=== PATIENT | female | born 1980 ===

== ENCOUNTER 2018-03-26 06:12 | Inpatient (IN) ==
[2018-03-26] MEDS ORDERED: BUTORPHANOL 2 MG/ML VIAL IV PRN (06:29)
[2018-03-26] MEDS ORDERED: MEPERIDINE 50 MG/1 ML VIAL IM PRN (06:29)
[2018-03-26] MEDS ORDERED: ONDANSETRON 4 MG/2 ML VIAL IV PRN ×2 (06:29→19:16)
[2018-03-26] MEDS ORDERED: OXYTOCIN/LR 20 UNIT/1,000 ML BAG IV SCH (06:30)
[2018-03-26] MEDS ORDERED: LACTATED RINGERS 1,000 ML IV SCH (06:30)
[2018-03-26 07:14] LABS: Basophils % 0.2 % (0.0-0.8); Eosinophils # 0.1 10*3/uL (0.0-0.87); Eosinophils % 1.2 % (0.00-10.9); Hematocrit 31.6 VOL% (35.7-47.0); Hemoglobin 9.7 GM/DL (12.0-16.0); Immature Granulocytes % 0.6 %; Immature Granulocytes Absolute 0.03 #; Lymphocytes # 1.6 10*3/uL (1.4-4.0); Lymphocytes % 31.4 % (21.3-54.2); Mean Corpuscular HGB Conc 30.7 GM/DL (32-36); Mean Corpuscular Hemoglobin 26 PG (27-34); Mean Corpuscular Volume 85.9 FL (87-102); Mean Platelet Volume 12.7 FL (9.6-12.0); Monocytes # 0.4 10*3/uL (0.11-0.8); Neutrophils % 59.6 % (38.7-73.9); Platelet Count 127 T/CUMM (130-400); Red Blood Count 3.68 MC/CUMM (3.8-5.5); Red Cell Distribution Width 13.9 % (9.3-17.3)
[2018-03-26 07:29] LABS: Alanine Aminotransferase 14 U/L (13-56); Alkaline Phosphatase 170 U/L (45-117); Aspartate Amino Transferase 17 U/L (0-37); Bilirubin,Total < 0.39 MG/DL (0.2-1.0); Blood Urea Nitrogen 7 MG/DL (7-18); Calcium 8.1 MG/DL (8.5-10.1); Glucose 80 MG/DL (74-106); Osmolality,Calculated 273.5 MOS/KG (273-304); Sodium 139 MMOL/L (136-145)
[2018-03-26] MEDS ORDERED: FAMOTIDINE 20 MG/2 ML VIAL IV ONE (07:44)
[2018-03-26] MEDS ORDERED: LACTATED RINGERS 1,000 ML IV ONE (07:44)
[2018-03-26] MEDS ORDERED: CITRIC ACID/SODIUM CITRATE 30 ML UDCUP PO ONE (07:44)
[2018-03-26] MEDS ORDERED: ePHEDrine 50 MG/ML AMP IV PRN (07:45)
[2018-03-26] MEDS ORDERED: diphenhydrAMINE 50 MG/1 ML VIAL IV PRN ×2 (07:45)
[2018-03-26] MEDS ORDERED: NALOXONE 0.4 MG/ML VIAL IV PRN (07:45)
[2018-03-26] MEDS ORDERED: hydrOXYzine HCL 25 MG/1 ML VIAL IM PRN (07:45)
[2018-03-26] MEDS ORDERED: PROMETHAZINE 25 MG/1 ML VIAL IM ONE (07:45)
[2018-03-26] MEDS ORDERED: INSULIN REGULAR 100 UNIT/ML SUBCUT PRN (07:53)
[2018-03-26] MEDS ORDERED: DEXTROSE 50% 25 GM/50 ML VIAL IV PRN ×3 (07:53→22:08)
[2018-03-26] MEDS ORDERED: GLUCAGON 1 MG VIAL IM PRN ×3 (07:53→22:08)
[2018-03-26] MEDS ORDERED: fentaNYL 2 MCG/ROPIV 0.2% EPID 100 ML EPIDURAL SCH (08:00)
[2018-03-26] MEDS: AMPICILLIN INJ 2,000 MG in SODIUM CHLORIDE 0.9% 100 ML IV SCH ×2 (08:08→12:48)
[2018-03-26 09:50] LABS: Hepatitis B Surface Ag Quant < 0.10 Index; Hepatitis B Surface Ag Result Negative (Negative)
[2018-03-26 10:55] LABS: HIV Antigen/Antibody Result Nonreactive (Nonreactive)
[2018-03-26] MEDS ORDERED: DEXTROSE 5% LACTATED RINGERS 1,000 ML IV SCH (15:00)
[2018-03-26] MEDS ORDERED: ceFAZolin 2,000 MG in PREMIX 1 EACH IV ONE (17:15)
[2018-03-26] MEDS ORDERED: LIDOCAINE MPF 2% /EPI 20 ML VIAL ONE (17:19)
[2018-03-26] MEDS ORDERED: OXYTOCIN 10 UNIT/ML VIAL ONE ×2 (17:33→18:38)
[2018-03-26] MEDS ORDERED: MORPHINE 10 MG/10 ML VIAL ONE (18:36)
[2018-03-26] MEDS ORDERED: MIDAZOLAM 2 MG/2 ML VIAL ONE (18:38)
[2018-03-26] MEDS ORDERED: RHO(D) IMMUNE GLOBULIN 300 MCG SYRINGE IM ONE (19:16)
[2018-03-26] MEDS ORDERED: ACETAMINOPHEN 325 MG TABLET PO PRN (19:16)
[2018-03-26] MEDS ORDERED: OXYTOCIN/LR 20 UNIT/1,000 ML BAG IV ONE (19:16)
[2018-03-26] MEDS: DOCUSATE SODIUM 100 MG CAPSULE PO SCH (22:35)
[2018-03-27] MEDS: LACTATED RINGERS 1,000 ML IV SCH ×3 (01:40→11:06)
[2018-03-27] MEDS: ceFAZolin 1,000 MG in SYRINGE 1 EACH IV SCH ×2 (01:41→09:37)
[2018-03-27] MEDS: INSULIN REGULAR 100 UNIT/ML SUBCUT SCH ×4 (04:07→21:13)
[2018-03-27] MEDS ORDERED: GLUCAGON 1 MG VIAL IM PRN ×2 (04:53→16:40)
[2018-03-27] MEDS ORDERED: DEXTROSE 50% 25 GM/50 ML VIAL IV PRN ×2 (04:53→16:40)
[2018-03-27 07:20] LABS: Basophils % 0.2 % (0.0-0.8); Eosinophils % 0.2 % (0.00-10.9); Hematocrit 28.8 VOL% (35.7-47.0); Immature Granulocytes % 0.4 %; Immature Granulocytes Absolute 0.05 #; Lymphocytes # 1.7 10*3/uL (1.4-4.0); Lymphocytes % 13.1 % (21.3-54.2); Mean Corpuscular HGB Conc 31.3 GM/DL (32-36); Mean Corpuscular Hemoglobin 27 PG (27-34); Mean Platelet Volume 12.5 FL (9.6-12.0); Monocytes # 0.6 10*3/uL (0.11-0.8); Monocytes % 4.5 % (1.7-12.7); Neutrophils # 10.6 10*3/uL (1.4-7.4); Neutrophils % 81.6 % (38.7-73.9); Platelet Count 136 T/CUMM (130-400); Red Blood Count 3.31 MC/CUMM (3.8-5.5); Red Cell Distribution Width 14.1 % (9.3-17.3)
[2018-03-27] MEDS: DOCUSATE SODIUM 100 MG CAPSULE PO SCH ×2 (09:36→21:12)
[2018-03-27] MEDS: MULTIVITAMIN (PRENATAL) TABLET PO SCH (09:36)
[2018-03-27] MEDS: SIMETHICONE CHEW 80 MG TABLET PO PRN (15:47)
[2018-03-27] MEDS: MAGNESIUM HYDROXIDE SUSP 30 ML UDCUP PO PRN (15:47)
[2018-03-27] MEDS: METOCLOPRAMIDE 10 MG TABLET PO PRN (21:13)
[2018-03-28] MEDS: IBUPROFEN 800 MG TABLET PO PRN ×2 (00:33→09:33)
[2018-03-28] MEDS: METOCLOPRAMIDE 10 MG TABLET PO PRN ×2 (09:30→15:02)
[2018-03-28] MEDS: MAGNESIUM HYDROXIDE SUSP 30 ML UDCUP PO PRN ×2 (09:33→21:16)
[2018-03-28] MEDS: SIMETHICONE CHEW 80 MG TABLET PO PRN (09:34)
[2018-03-28] MEDS: MULTIVITAMIN (PRENATAL) TABLET PO SCH (09:34)
[2018-03-28] MEDS: DOCUSATE SODIUM 100 MG CAPSULE PO SCH ×2 (09:37→21:16)
[2018-03-29] MEDS: INSULIN REGULAR 100 UNIT/ML SUBCUT SCH (02:24)
[2018-03-29 07:38] VITALS: BP 125/71
[2018-03-29] MEDS: SIMETHICONE CHEW 80 MG TABLET PO PRN (09:31)
[2018-03-29] MEDS: DOCUSATE SODIUM 100 MG CAPSULE PO SCH (09:31)
[2018-03-29] MEDS: IBUPROFEN 800 MG TABLET PO PRN (09:31)
[2018-03-29] MEDS: MAGNESIUM HYDROXIDE SUSP 30 ML UDCUP PO PRN (09:32)
[2018-03-29] MEDS: MULTIVITAMIN (PRENATAL) TABLET PO SCH (09:33)
[2018-03-29] MEDS ORDERED: DIPH/TET/ACEL PERT BOOSTER VACCINE 0.5 ML VIAL IM ONE (09:55)
[2018-03-29] MEDS ORDERED: INFLUENZA VIRUS VACCINE 0.5 ML SYRINGE IM ONE (09:55)
== END 2018-03-29 11:50 | disposition home or self-care (01) | DRG 786 ==
LOC: N.LDOUT 06:12 → N.LD 06:14 → N.OB 22:27
PROVIDERS: ADMIT Obstetrics & Gynecology; ATTEND Obstetrics & Gynecology
PROC: LDCSECT (ICD-10-PCS; 2018-03-26 17:30)

== ENCOUNTER 2022-04-20 01:31 | Inpatient (IN) ==
[2022-04-20] MEDS ORDERED: ceFAZolin 2,000 MG/50 ML DUPLEX IV PRN (05:47)
[2022-04-20] MEDS ORDERED: CITRIC ACID/SODIUM CITRATE 30 ML UDCUP PO PRN (05:47)
[2022-04-20] MEDS ORDERED: miSOPROStoL 200 MCG TABLET RECTAL PRN (05:47)
[2022-04-20] MEDS ORDERED: TRANEXAMIC ACID 1,000 MG in SODIUM CHLORIDE 0.9% 100 ML IV PRN (05:47)
[2022-04-20] MEDS ORDERED: METHYLERGONOVINE 0.2 MG/1 ML AMP IM PRN (05:47)
[2022-04-20] MEDS ORDERED: CARBOPROST TROMETHAMINE 250 MCG/ML AMP IM PRN (05:47)
[2022-04-20] MEDS ORDERED: FAMOTIDINE 20 MG/2 ML VIAL IV PRN (05:47)
[2022-04-20] MEDS ORDERED: OXYTOCIN/LR 30 UNIT/1,000 ML BAG IV PRN (05:50)
[2022-04-20] MEDS ORDERED: diphenhydrAMINE 50 MG/1 ML VIAL IV PRN ×2 (05:52)
[2022-04-20] MEDS ORDERED: hydrOXYzine HCL 25 MG/1 ML VIAL IM PRN (05:52)
[2022-04-20] MEDS ORDERED: PROMETHAZINE 25 MG/1 ML VIAL IM PRN ×2 (05:52→14:13)
[2022-04-20] MEDS ORDERED: LACTATED RINGERS 1,000 ML IV SCH ×2 (06:00→10:00)
[2022-04-20] MEDS: LACTATED RINGERS 1,000 ML IV PRN ×2 (06:14→08:13)
[2022-04-20 06:33] LABS: Basophils % 0.2 % (0.0-0.8); Eosinophils # 0.1 10*3/uL (0.0-0.87); Hematocrit 30.6 VOL% (35.7-47.0); Hemoglobin 9.9 GM/DL (12.0-16.0); Immature Granulocytes % 0.5 %; Immature Granulocytes Absolute 0.03 #; Lymphocytes # 1.5 10*3/uL (1.4-4.0); Mean Corpuscular HGB Conc 32.4 GM/DL (32-36); Mean Corpuscular Volume 87.4 FL (87-102); Mean Platelet Volume 11.3 FL (9.6-12.0); Monocytes # 0.5 10*3/uL (0.11-0.8); Monocytes % 7.8 % (1.7-12.7); Neutrophils % 64.5 % (38.7-73.9); Platelet Count 177 T/CUMM (130-400); Red Cell Distribution Width 13.4 % (9.3-17.3); White Blood Count 5.9 T/CUMM (4-12)
[2022-04-20 06:55] LABS: Alanine Aminotransferase 10 U/L (13-56); Albumin 2.1 G/DL (3.4-5.0); Alkaline Phosphatase 164 U/L (45-117); Aspartate Amino Transferase 8 U/L (0-37); Bilirubin,Total < 0.39 MG/DL (0.20-1.00); Blood Urea Nitrogen 8 MG/DL (7-18); Calcium 8.2 MG/DL (8.5-10.1); Carbon Dioxide 25 MMOL/L (21-32); Chloride 110 MMOL/L (98-107); Glucose 78 MG/DL (74-106); Osmolality,Calculated 277.3 MOS/KG (273-304); Potassium 3.7 MMOL/L (3.5-5.1); Sodium 141 MMOL/L (136-145); Total Protein 5.8 G/DL (6.4-8.2)
[2022-04-20] MEDS ORDERED: ONDANSETRON 4 MG/2 ML VIAL ONE ×2 (08:24→09:13)
[2022-04-20] MEDS ORDERED: buprenorphine HCL 0.3 MG/ML VIAL ONE (08:24)
[2022-04-20] MEDS ORDERED: BUPIVACAINE SPINAL 0.75% 2 ML AMP SPINAL ONE (08:24)
[2022-04-20] MEDS ORDERED: OXYTOCIN 10 UNIT/ML VIAL IM ONE (08:57)
[2022-04-20 09:35] LABS: Bilirubin,Urine Negative (Negative); Blood, Urine Negative (Negative); Glucose,Urine (UA) Negative (Negative); Ketones,Urine Negative (Negative); Mucus,Urine Occasional /LPF (Occasional); Nitrite,Urine Negative (Negative); Protein,Urine Negative (Negative); RBC,Urine <1 /HPF (0-4); Squamous Epithelial Cell,Urine Occasional /HPF (0-10); Urine Appearance CLEAR (Clear); Urine Color Yellow (Yellow); Urine Specific Gravity 1.019 (1.001-1.035)
[2022-04-20 09:38] LABS: Cord Arterial Blood HCO3 20.1 MMOL/L
[2022-04-20] MEDS ORDERED: KETOROLAC 30 MG/1 ML VIAL ONE (09:38)
[2022-04-20 09:41] LABS: Cord Venous Blood HCO3 22.1 MMOL/L; Cord Venous Blood PCO2 46.4 MMHG; Cord Venous Blood PO2 30.1
[2022-04-20] MEDS ORDERED: ACETAMINOPHEN 325 MG TABLET PO PRN (09:43)
[2022-04-20] MEDS ORDERED: OXYTOCIN/LR 20 UNIT/1,000 ML BAG IV ONE ×2 (09:43→11:40)
[2022-04-20] MEDS ORDERED: ONDANSETRON 4 MG/2 ML VIAL IV PRN (09:43)
[2022-04-20] MEDS ORDERED: RHO(D) IMMUNE GLOBULIN 300 MCG SYRINGE IM ONE (09:43)
[2022-04-20] MEDS ORDERED: GLUCAGON 1 MG VIAL IM PRN (09:43)
[2022-04-20] MEDS ORDERED: IBUPROFEN 800 MG TABLET PO PRN (09:43)
[2022-04-20] MEDS ORDERED: DEXTROSE 10% 250 ML BAG IV PRN (09:43)
[2022-04-20] MEDS ORDERED: HYDROmorphone 1 MG/1 ML SYRINGE IV PRN (09:47)
[2022-04-20] MEDS: ACETAMINOPHEN 500 MG TABLET PO SCH ×2 (13:14→18:01)
[2022-04-20 15:20] LABS: Basophils % 0.1 % (0.0-0.8); Eosinophils % 0.2 % (0.00-10.9); Hematocrit 33.4 VOL% (35.7-47.0); Hemoglobin 10.9 GM/DL (12.0-16.0); Immature Granulocytes % 0.3 %; Immature Granulocytes Absolute 0.03 #; Lymphocytes # 1.1 10*3/uL (1.4-4.0); Lymphocytes % 11.4 % (21.3-54.2); Mean Corpuscular HGB Conc 32.6 GM/DL (32-36); Mean Corpuscular Volume 88.1 FL (87-102); Mean Platelet Volume 11.3 FL (9.6-12.0); Monocytes # 0.5 10*3/uL (0.11-0.8); Monocytes % 5.2 % (1.7-12.7); Neutrophils % 82.8 % (38.7-73.9); Platelet Count 180 T/CUMM (130-400); Red Blood Count 3.79 MC/CUMM (3.8-5.5); Red Cell Distribution Width 13.2 % (9.3-17.3); White Blood Count 9.7 T/CUMM (4-12)
[2022-04-20] MEDS: KETOROLAC 30 MG/1 ML VIAL IV SCH ×2 (16:38→23:50)
[2022-04-20] MEDS: INSULIN REGULAR 100 UNIT/ML SUBCUT SCH ×2 (18:07→23:40)
[2022-04-20] MEDS: DOCUSATE SODIUM 100 MG CAPSULE PO SCH (20:58)
[2022-04-20] MEDS: SIMETHICONE CHEW 80 MG TABLET PO PRN (20:58)
[2022-04-21] MEDS: ACETAMINOPHEN 500 MG TABLET PO SCH ×2 (00:01→06:13)
[2022-04-21] MEDS: KETOROLAC 30 MG/1 ML VIAL IV SCH (00:01)
[2022-04-21] MEDS: INSULIN REGULAR 100 UNIT/ML SUBCUT SCH ×3 (06:05→17:20)
[2022-04-21] MEDS ORDERED: KETOROLAC 30 MG/1 ML VIAL IV SCH (06:30)
[2022-04-21 07:02] LABS: Basophils % 0.2 % (0.0-0.8); Eosinophils # 0.1 10*3/uL (0.0-0.87); Eosinophils % 1.4 % (0.00-10.9); Hematocrit 30.5 VOL% (35.7-47.0); Immature Granulocytes % 0.5 %; Immature Granulocytes Absolute 0.03 #; Lymphocytes # 1.5 10*3/uL (1.4-4.0); Lymphocytes % 23.6 % (21.3-54.2); Mean Corpuscular HGB Conc 32.8 GM/DL (32-36); Mean Corpuscular Volume 87.9 FL (87-102); Mean Platelet Volume 11.2 FL (9.6-12.0); Monocytes # 0.5 10*3/uL (0.11-0.8); Monocytes % 7.3 % (1.7-12.7); Platelet Count 195 T/CUMM (130-400); Red Blood Count 3.47 MC/CUMM (3.8-5.5); Red Cell Distribution Width 13.4 % (9.3-17.3); White Blood Count 6.5 T/CUMM (4-12)
[2022-04-21] MEDS: MAGNESIUM HYDROXIDE SUSP 30 ML UDCUP PO PRN ×2 (09:45→20:59)
[2022-04-21] MEDS: MULTIVITAMIN (PRENATAL) TABLET PO SCH (09:45)
[2022-04-21] MEDS: DOCUSATE SODIUM 100 MG CAPSULE PO SCH ×2 (09:45→21:00)
[2022-04-21] MEDS: SIMETHICONE CHEW 80 MG TABLET PO PRN (20:59)
[2022-04-22] MEDS: INSULIN REGULAR 100 UNIT/ML SUBCUT SCH ×3 (00:20→16:06)
[2022-04-22 09:23] VITALS: BP 145/82
[2022-04-22] MEDS: MULTIVITAMIN (PRENATAL) TABLET PO SCH (09:47)
[2022-04-22] MEDS: DOCUSATE SODIUM 100 MG CAPSULE PO SCH (09:47)
[2022-04-22] MEDS ORDERED: INFLUENZA VIRUS VACCINE 0.5 ML SYRINGE IM ONE (13:26)
[2022-04-22] MEDS ORDERED: DIPH/TET/ACEL PERT BOOSTER VACCINE 0.5 ML VIAL IM ONE (13:26)
== END 2022-04-22 14:10 | disposition home or self-care (01) | DRG 786 ==
LOC: N.LDOUT 01:31 → N.LD 01:48 → N.OB 12:28
PROVIDERS: ADMIT Obstetrics & Gynecology; ATTEND Obstetrics & Gynecology
PROC: LDCSECT (ICD-10-PCS; 2022-04-20 08:30)